=== PATIENT | female | born 1970 | race Asian ===

== ENCOUNTER 2017-12-21 17:52 | Emergency (ER) | payer BC, OTHER ==
[2017-12-21] MEDS: KETOROLAC 60 MG INJ IM (20:51)
== END 2017-12-21 22:21 | disposition home or self-care (01) ==
LOC: FTE 17:52
DX: S50.01XA Contusion of right elbow, initial encounter (principal); S00.83XA Contusion of other part of head, initial encounter; S20.219A Contusion of unspecified front wall of thorax, initial encounter; J45.909 Unspecified asthma, uncomplicated; V89.2XXA Person injured in unspecified motor-vehicle accident, traffic, initial encounter
CPT/HCPCS: 70450; 70486; 71110; 73080-RT; 81025; 96372; 99285-25